=== PATIENT | male | born 1945 | race Caucasian/White ===

== ENCOUNTER 2017-04-08 22:01 | Observation (INO) ==
[2017-04-09] MEDS ORDERED: Naloxone 0.4 MG/ML INJ IVP PRN (00:39)
[2017-04-09] MEDS ORDERED: *HR* Morphine 2 MG/ML SYRINGE IVP PRN (00:39)
[2017-04-09] MEDS ORDERED: Acetaminophen 325 MG TABLET PO PRN (00:39)
--- NOTE | 2017-04-09 00:54 | Internal Med History&Physical ---
Date of Encounter: 04/09/17 Time of Encounter: 00:25 Assessment and Plan (1) Exertional dyspnea Current visit: Yes Status: Acute 1. Based upon history and exam, I am concerned about cardiac (anginal) etiology. 2. Will cycle troponins, EKG's, and obtain ECHO. 3. If above negative, patient should undergo cardiac stress testing. (2) Chest pain Current visit: Yes Status: Acute 1. Pain appears to be pleuritic and/or musculoskeletal based upon exam. 2. Patient denies any chest wall trauma. 3. Will rule out cardiac etiology and, if negative, then can pursue non- cardiac work-up and treat as needed. 4. CTA chest negative for PE. Qualifiers: Chest pain type: intercostal pain Qualified Code(s): R07.82 - Intercostal pain (3) DVT prophylaxis Current visit: Yes Status: Acute 1. Heparin SQ. Internal Medicine - H&P: HPI Chief complaint: chest pain; exertional SOB Admitted From: Hospital to Hospital Transfer Plans for Post Hospital Care: Home History of present illness: Mr. Armenta is a 71 year old male who presents in transfer from [facility] ER for concerns of chest pain and exertional dyspnea. Workup at [facility] was negative including a CT angiogram to rule out PE. Nonetheless, his history and his presenting symptoms were concerning and justified transfer for further cardiac workup and monitoring. I accepted the patient in transfer from [facility]. Upon my assessment of the patient, he is resting in bed comfortably. He does complain of pleuritic type chest pain of 2-3 days duration. He also complains of worsening exertional dyspnea to the point that he can barely walk without significant dyspnea. These symptoms started about 1 week ago and have progressively worsened. He denies any fever, cough, chills, or body aches. He denies any ill contacts. He does have a history of heart disease and a prior ND. He had a balloon angioplasty back in 1991, but he has not had any kind of stent in his coronary arteries. His last heart catheterization was about 10 years ago and he has not had a stress test since then. He denies any prolonged travel, sedentary lifestyle, or any family history of blood clots. Past Med Surg Social Fam HX - Past Medical History Attestation: Yes The following information was validated with the patient. Source: patient, old records reviewed, other ([facility] ER notes) Medical history: coronary artery disease, GERD, hyperlipidemia, hypertension, myocardial infarction, thyroid disease Psychiatric history: no psych history - Past Surgical History Surgical History: appendectomy, cholecystectomy, colectomy (partial) - Social History Smoking Status: Never smoker Smokeless Tobacco Status: No Alcohol use: none Drug use: none Current living situation: Home, With Family Activity Level: Independent ambulation - Family History Mother Living Status: Hx Family Cardiac Disorders: No Father Living Status: Hx Family Cardiac Disorders: No Hx Family Cancer: Yes Internal Medicine - H&P: Meds Cetirizine HCl [All Day Allergy] 10 mg PO DAILY 04/08/17 [History] Finasteride [Proscar] 5 mg PO DAILY 04/08/17 [History] HYDROcodone/Acet 10/325 mg [[place] 10-325 mg] 1 tab PO Q6HR PRN 04/08/17 [History ] Hydrochlorothiazide [Microzide] 12.5 mg PO DAILY 04/08/17 [History] Levofloxacin [Levaquin] 500 mg PO DAILY 04/08/17 [History] Levothyroxine [Synthroid] 25 mcg PO DAILY 04/08/17 [History] Omeprazole [PriLOSEC] 40 mg PO DAILY 04/08/17 [History] Ondansetron ODT [Zofran ODT] 4 mg SL Q6HR PRN 04/08/17 [History] Pregabalin [Lyrica] 150 mg PO TID 04/08/17 [History] amLODIPine [Norvasc] 5 mg PO DAILY 04/08/17 [History] lamoTRIgine [Lamictal] 100 mg PO BID 04/08/17 [History] 3 Allergy/AdvReac Type Severity Reaction Status Date / Time ciprofloxacin Allergy Hypotension Verified 08/27/16 14:53 - Constitutional Constitutional: no chills, no fever(s), no night sweats - EENT Eyes: no blurry vision, no change in vision Ears: no ear pain, no tinnitus Nose, mouth and throat: no nasal congestion, no sinus pressure, no sore throat - Cardiovascular Cardiovascular ROS IM: chest pain, dyspnea, dyspnea on exertion, lightheadedness , palpitations, no diaphoresis, no edema, no paroxysmal nocturnal dyspnea, no syncope - Respiratory Respiratory: dyspnea, dyspnea on exertion, pain on inspiration, no cough, no hemoptysis, no wheezing, no chest congestion, no excessive phlegm production, no pain with cough - Gastrointestinal Gastrointestinal: no abdominal pain, no diarrhea, no hematemesis, no hematochezia, no melena, no nausea, no vomiting - Genitourinary Genitourinary ROS male: no dysuria, no flank pain, no hematuria - Musculoskeletal Musculoskeletal ROS IM: back pain (chronic), no muscle weakness, no myalgias - Integumentary Integumentary IM: no rash, no jaundice - Neurological Neurological ROS: no focal weakness, no frequent falls, no headache(s) - Psychiatric Psychiatric: no anxiety, no depression - Endocrine Endocrine IM: no cold intolerance, no heat intolerance, no polydipsia, no polyuria - Hematologic/Lymphatic Hematologic/Lymphatic: no lymphadenopathy - Allergic/Immunologic Allergic/Immunologic: no wheezing, no GI upset with certain foods - Constitutional Vitals: Temp Pulse Resp BP Pulse Ox 98.1 F 77 18 132/79 96 04/09/17 00:36 04/09/17 00:36 04/09/17 00:36 04/09/17 00:36 04/09/17 00:36 General appearance: Present: cooperative, mild distress, A&O X 3, pleasant, answers questions appropriately - Head Head exam: Present: atraumatic, normal inspection - Eye Eye exam: Present: EOMI, normal appearance, PERRL. Absent: scleral icterus Pupils: Present: normal accommodation - ENT ENT exam: Present: mucous membranes dry, normal exam - Neck Neck exam general surgery: Present: full ROM, supple. Absent: lymphadenopathy, tenderness, thyromegaly - Expanded Neck Exam Neck exam: Absent: carotid bruit - Respiratory Respiratory exam: Present: chest wall tenderness (left lower ribs), CTAB. Absent: accessory muscle use, rales, respiratory distress, rhonchi, wheezes - Cardiovascular Cardiovascular exam: Present: RRR, +S1, +S2. Absent: diastolic murmur, JVD, systolic murmur - GI/Abdominal GI/Abdominal exam: Present: soft. Absent: hepatomegaly, mass, splenomegaly, tenderness - Extremities Exam Extremities exam: Present: full ROM, warm. Absent: calf tenderness, joint swelling - Back Exam Back exam: Absent: CVA tenderness (L), CVA tenderness (R) - Neurological Exam Neurological exam: Present: alert, CN II-XII intact, oriented X3, no focal deficits - Psychiatric Psychiatric exam: Present: normal affect, normal mood - Skin Skin exam: Present: dry, warm. Absent: rash Internal Med - H&P Results - EKG Data -: EKG Interpreted by Myself - EKG Data Prior EKG available for review: no EKG comments: 04/09/17 01:01 Sinus rhythm; LAD; borderline LVH; no acute changes appreciated - Diagnostic Studies CT scan - chest Additional comments: CT report reviewed -- No PE Chest x-ray Status: image reviewed by me (negative)
[2017-04-09] MEDS: Famotidine 20 MG TABLET PO SCH ×2 (01:11→09:34)
[2017-04-09] MEDS: *HR* HYDROcodone/Acet 10/325 mg TABLET PO PRN ×4 (01:11→20:18)
[2017-04-09 01:50] LABS: Basophils # 0.1 K/mcL (0.0-0.2); Eosinophils # 0.1 K/mcL (0.0-0.6); Eosinophils % 2.7 %; Hematocrit 44.4 % (37.5-50.1); Hemoglobin 14.7 g/dL (12.9-16.9); Immature Granulocytes % 0.4 % (0-4); Lymphocytes # 1.6 K/mcL (0.6-4.6); Lymphocytes % 30.7 %; Mean Corpuscular HGB Conc 33.1 g/dL (31.6-35.5); Mean Corpuscular Hemoglobin 29.1 pg (28.0-33.3); Mean Corpuscular Volume 87.7 fL (83.0-100.0); Mean Platelet Volume 9.7 fL (9.4-12.4); Monocytes # 0.6 K/mcL (0.0-1.3); Monocytes % 11.2 %; Neutrophils # 2.8 K/mcL (1.6-8.9); Platelet Count 206 K/mcL (140-400); Red Blood Count 5.06 M/mcL (4.19-5.50); Red Cell Distribution Width 12.2 % (11.5-14.5)
[2017-04-09 01:53] LABS: INR 1.1; Prothrombin Time 12.2 Seconds (9.4-12.1)
[2017-04-09] MEDS: *HR* LORazepam 0.5 MG TABLET PO PRN ×2 (01:53→21:10)
[2017-04-09 01:55] LABS: Activated Partial Thrombo Time 31.4 Seconds (26.0-36.0)
[2017-04-09 02:07] LABS: Alanine Aminotransferase 14 Units/L (0-55); Albumin 4.1 g/dL (3.5-5.0); Albumin/Globulin Ratio 1.2 (1.1-2.2); Alkaline Phosphatase 88 Units/L (38-126); Aspartate Amino Transferase 21 Units/L (5-34); BUN/Creatinine Ratio 12 (6-26); Bilirubin,Total 0.7 mg/dL (0.2-1.2); Blood Urea Nitrogen 15 mg/dL (8-26); Calcium 9.9 mg/dL (8.6-10.8); Carbon Dioxide 27 mEq/L (19-29); Chloride 102 mEq/L (98-109); Chol/HDL Ratio 3.3 (0-4.9); Cholesterol 151 mg/dL (< 200); Globulin 3.3 g/dL (2.4-3.5); Glucose 149 mg/dL (70-99); HDL Cholesterol 46 mg/dL (40-59); LDL Cholesterol,Calculated 92 mg/dL (0-99); Magnesium 2.3 mg/dL (1.6-2.6); Osmolality,Calculated 292 (280-300); Potassium 3.4 mEq/L (3.5-4.5); Sodium 139 mEq/L (136-145); Total Protein 7.4 g/dL (6.0-8.3); Triglycerides 67 mg/dL (< 150); eGFR For African Americans > 60 (> 60); eGFR For Non-African Americans 57 (> 60)
[2017-04-09] MEDS: *HR* Heparin 5,000 UNIT/ML VIAL SQ SCH ×2 (05:04→18:05)
[2017-04-09] MEDS: lamoTRIgine 100 MG TABLET PO SCH ×2 (12:51→20:18)
--- NOTE | 2017-04-09 17:08 | Internal Med Progress Note ---
Date of Encounter: 04/09/17 Time of Encounter: 15:35 - Assessment and plan (1) Chest pain Current Visit: Yes Status: Acute Assessment and plan: Patient denies chest pain currently. He reports syncopal episodes intermittently, most recently at primary care physician's office. Echocardiogram today shows LVEF of 60% with mild LV DD normal right ventricular structure and function, no significant valvular dysfunction. Stress test has been ordered for morning. Continue telemetry O2 as needed to maintain sats greater than 92% Stress test in the morning Consider cardiology consult based on stress results. Qualifiers: Chest pain type: intercostal pain Qualified Code(s): R07.82 - Intercostal pain (2) Exertional dyspnea Current Visit: Yes Status: Acute Assessment and plan: Patient reports increasing dyspnea for the last 2 nights, he states he is not to sleep in the chair sitting up. He also reports worsening exertional dyspnea and he barely walk without becoming short of breath. He states that he has been short of breath since November with worsening here in the last week. He has a history of prior RI and angioplasty 15 years ago, he denies any stents. Echocardiogram result as above. Chest CT without PE no acute airspace consolidation, multiple scattered pulmonary nodules, the largest approximate 5 mm. There is no follow-up required. Chest x-ray showed low lung volumes and no infiltrate. O2 as needed to maintain saturations greater than 92% Continue telemetry Stress test in the morning Consider cardiology consult (3) Trigeminal neuralgia of left side of face Current Visit: Yes Status: Acute Assessment and plan: Per patient history. He takes Lamictal. (4) DVT prophylaxis Current Visit: Yes Status: Acute Assessment and plan: Heparin subcutaneous. - Time Spent With Patient less than 15 minutes - Subjective Interval history: Patient was seen and assessed at 1535. He reports that he has had shortness of breath since November, it became worse when he was admitted at [facility]. He reports that his first episode of syncope was at home on December 17. He was sent to [facility] diagnosed with trigeminal neuralgia. Patient reports left chest pain with intermittent midsternal sharp chest pain without radiation, he reports some associated nausea, denies vomiting or diaphoresis.. He states he also had a syncopal episode at his primary care doctor's office prior to arrival. Patient reports positive headache now, states that since his medication has been late he has a headache. Nurse was informed to give patient his medication - Constitutional Vitals: Temp Pulse Resp BP Pulse Ox 98.2 F 80 14 113/69 96 04/09/17 15:40 04/09/17 15:40 04/09/17 15:40 04/09/17 15:40 04/09/17 15:40 General appearance: Present: cooperative, mild distress, A&O X 3, pleasant, no acute distress, answers questions appropriately - Head Head exam: Present: atraumatic, normal inspection, normocephalic - Eye Eye exam: Present: normal appearance, PERRL, conjuntiva pink, sclera anicteric - Neck Neck exam general surgery: Present: normal inspection, supple, trachea midline. Absent: lymphadenopathy - Respiratory Respiratory exam: Present: CTAB. Absent: accessory muscle use, chest wall tenderness, rales, rhonchi, wheezes - Cardiovascular Cardiovascular exam: Present: RRR, +S1, +S2. Absent: diastolic murmur, gallop, rubs, systolic murmur - GI/Abdominal GI/Abdominal exam: Present: normal bowel sounds, soft, no peritoneal signs. Absent: distended, hepatomegaly, tenderness - Extremities Exam Extremities exam: Present: normal inspection, warm, radial pulses palpable and symmetrical. Absent: calf tenderness, cyanotic, pedal edema - Neurological Exam Neurological exam: Present: alert, oriented X3. Absent: facial droop, speech deficit - Skin Skin exam: Present: dry, intact, normal color, warm. Absent: rash Internal Medicine: Result - Labs CBC & Chem 7: 04/09/17 01:10 04/09/17 01:10 Labs: Short CBC 04/09/17 Range/Units 01:10 WBC 5.2 (4.3-11.1) K/mcL Hgb 14.7 (12.9-16.9) g/dL Hct 44.4 (37.5-50.1) % Plt Count 206 (140-400) K/mcL Neutrophils # 2.8 (1.6-8.9) K/mcL BMP 04/09/17 01:10 Sodium 139 Potassium 3.4 L Chloride 102 Carbon Dioxide 27 BUN 15 Creatinine 1.25 Glucose 149 H Calcium 9.9 Cardiac Enzymes 04/09/17 04/09/17 04/09/17 Range/Units 01:10 06:50 12:18 Troponin I 0.00 0.01 0.00 (0-0.03) ng/mL Liver Function 04/09/17 Range/Units 01:10 Total Bilirubin 0.7 (0.2-1.2) mg/dL AST 21 (5-34) Units/L ALT 14 (0-55) Units/L Alkaline Phosphatase 88 (38-126) Units/L Albumin 4.1 (3.5-5.0) g/dL - ABG Interpretation ABG results: PT/INR, D-dimer PT 12.2 Seconds (9.4-12.1) H 04/09/17 01:10 Consult Discharge Plan - Plan Referrals: Miguel Mera MD [Primary Care Provider] -
[2017-04-09] MEDS: amLODIPine 5 MG TABLET PO SCH (18:04)
[2017-04-09] MEDS: levoFLOXacin 500 MG TABLET PO SCH (18:05)
[2017-04-09] MEDS: Loratadine 10 MG TABLET PO SCH (18:05)
[2017-04-09] MEDS: hydroCHLOROthiazide 25 MG TABLET PO SCH (18:05)
[2017-04-09] MEDS: Pregabalin 75 MG CAPSULE PO SCH (20:19)
[2017-04-09] MEDS ORDERED: lamoTRIgine 100 MG TABLET PO SCH (21:00)
[2017-04-09] MEDS: Ondansetron 4 MG/2 ML VIAL IVP PRN (22:44)
[2017-04-10] MEDS: *HR* Heparin 5,000 UNIT/ML VIAL SQ SCH ×2 (05:33→16:51)
[2017-04-10] MEDS: Levothyroxine 25 MCG TABLET PO SCH (05:34)
[2017-04-10] MEDS ORDERED: Regadenoson 0.4 MG/5 ML SYRINGE IVP ONE (08:44)
[2017-04-10] MEDS: hydroCHLOROthiazide 25 MG TABLET PO SCH (10:41)
[2017-04-10] MEDS: Loratadine 10 MG TABLET PO SCH (10:41)
[2017-04-10] MEDS: *HR* LORazepam 0.5 MG TABLET PO PRN ×2 (10:41→21:54)
[2017-04-10] MEDS: Finasteride 5 MG TABLET PO SCH (10:41)
[2017-04-10] MEDS: lamoTRIgine 100 MG TABLET PO SCH ×2 (10:41→21:55)
[2017-04-10] MEDS: Pregabalin 75 MG CAPSULE PO SCH ×3 (10:42→21:55)
[2017-04-10] MEDS: Famotidine 20 MG TABLET PO SCH (10:42)
[2017-04-10] MEDS: amLODIPine 5 MG TABLET PO SCH (10:42)
--- NOTE | 2017-04-10 16:36 | Internal Med Progress Note ---
Date of Encounter: 04/10/17 Time of Encounter: 10:35 - Assessment and plan (1) Chest pain Current Visit: Yes Status: Acute Assessment and plan: Stress test today showed gated EF 73% with a small sized, moderate intensity, reversible apical lateral defect suggestive of ischemia. Cardiology consulted, pt will be NPO after midnight for possible cath tomorrow or Tuesday. Continue telemetry Pain control Monitor labs NPO after midnight. Qualifiers: Chest pain type: intercostal pain Qualified Code(s): R07.82 - Intercostal pain (2) Exertional dyspnea Current Visit: Yes Status: Acute Assessment and plan: Patient reports increasing dyspnea for the last 3 nights, he states he has to sleep in the chair sitting up. He also reports worsening exertional dyspnea and he barely walk without becoming short of breath. He states that he has been short of breath since November with worsening here in the last week. He has a history of prior ID and angioplasty 15 years ago, he denies any stents. Echocardiogram result as above. Chest CT without PE no acute airspace consolidation, multiple scattered pulmonary nodules, the largest approximate 5 mm. There is no follow-up required. Chest x-ray showed low lung volumes and no infiltrate. Pt reports episode last night where he felt like "I couldn't get my breath." He states that he was shaky and nauseated and was given Zofran. He had Ativan prior to bed, onset of episode at 0130. Pt was amenable to trying Ativan today. O2 as needed to maintain saturations greater than 92% Continue telemetry Stress test in the morning Consider cardiology consult (3) Trigeminal neuralgia of left side of face Current Visit: Yes Status: Acute Assessment and plan: Per patient history. He takes Lamictal. (4) DVT prophylaxis Current Visit: Yes Status: Acute Assessment and plan: Heparin subcutaneous. - Subjective Interval history: Patient was seen and assessed at 1035. Pt still reports SOB. He states that he had an episode during the night where he was SOB and "I couldn't catch my breath." Onset at 0130 and he reports nausea and shaking. He was given Zofran and states that he felt better. He was agreeable to Ativan today. - Constitutional Vitals: Temp Pulse Resp BP Pulse Ox 98.3 F 76 14 114/72 96 04/10/17 15:43 04/10/17 15:43 04/10/17 15:43 04/10/17 15:43 04/10/17 15:43 General appearance: Present: cooperative, mild distress, A&O X 3, pleasant, no acute distress, answers questions appropriately - Head Head exam: Present: atraumatic, normal inspection, normocephalic - Eye Eye exam: Present: normal appearance, conjuntiva pink, sclera anicteric - Neck Neck exam general surgery: Present: normal inspection, supple, trachea midline. Absent: lymphadenopathy - Respiratory Respiratory exam: Present: CTAB. Absent: accessory muscle use, chest wall tenderness, decreased breath sounds, rales, rhonchi, wheezes - Cardiovascular Cardiovascular exam: Present: RRR, +S1, +S2. Absent: diastolic murmur, gallop, rubs, systolic murmur - GI/Abdominal GI/Abdominal exam: Present: normal bowel sounds, soft. Absent: distended, hernia, tenderness - Extremities Exam Extremities exam: Present: normal inspection, warm, radial pulses palpable and symmetrical. Absent: calf tenderness, cyanotic, pedal edema, tenderness - Neurological Exam Neurological exam: Present: alert, oriented X3. Absent: facial droop, speech deficit - Skin Skin exam: Present: dry, intact, normal color, warm. Absent: rash Internal Medicine: Result - Labs CBC & Chem 7: 04/09/17 01:10 04/09/17 01:10 - ABG Interpretation ABG results: PT/INR, D-dimer PT 12.2 Seconds (9.4-12.1) H 04/09/17 01:10 Consult Discharge Plan - Plan Referrals: Miguel Mera MD [Primary Care Provider] -
[2017-04-10] MEDS: levoFLOXacin 500 MG TABLET PO SCH (16:51)
[2017-04-10] MEDS: *HR* HYDROcodone/Acet 10/325 mg TABLET PO PRN (20:04)
[2017-04-10] MEDS: Ondansetron 4 MG/2 ML VIAL IVP PRN (21:59)
[2017-04-11 04:34] LABS: Basophils # 0.1 K/mcL (0.0-0.2); Eosinophils # 0.2 K/mcL (0.0-0.6); Eosinophils % 4.3 %; Hematocrit 44.4 % (37.5-50.1); Hemoglobin 14.5 g/dL (12.9-16.9); Immature Granulocytes % 0.4 % (0-4); Lymphocytes % 40.4 %; Mean Corpuscular HGB Conc 32.7 g/dL (31.6-35.5); Mean Corpuscular Hemoglobin 29.4 pg (28.0-33.3); Mean Corpuscular Volume 89.9 fL (83.0-100.0); Mean Platelet Volume 9.2 fL (9.4-12.4); Monocytes # 0.5 K/mcL (0.0-1.3); Monocytes % 10.9 %; Neutrophils # 2.1 K/mcL (1.6-8.9); Platelet Count 202 K/mcL (140-400); Red Blood Count 4.94 M/mcL (4.19-5.50); Red Cell Distribution Width 12.2 % (11.5-14.5)
[2017-04-11 04:51] LABS: BUN/Creatinine Ratio 15 (6-26); Blood Urea Nitrogen 20 mg/dL (8-26); Calcium 9.6 mg/dL (8.6-10.8); Carbon Dioxide 31 mEq/L (19-29); Chloride 101 mEq/L (98-109); Glucose 99 mg/dL (70-99); Osmolality,Calculated 291 (280-300); Potassium 4.2 mEq/L (3.5-4.5); Sodium 139 mEq/L (136-145); eGFR For African Americans > 60 (> 60); eGFR For Non-African Americans 53 (> 60)
[2017-04-11] MEDS: *HR* Heparin 5,000 UNIT/ML VIAL SQ SCH ×2 (06:38→17:09)
[2017-04-11] MEDS: Levothyroxine 25 MCG TABLET PO SCH (06:39)
[2017-04-11] MEDS: Finasteride 5 MG TABLET PO SCH (09:00)
[2017-04-11] MEDS: hydroCHLOROthiazide 25 MG TABLET PO SCH (09:00)
[2017-04-11] MEDS: Loratadine 10 MG TABLET PO SCH (09:01)
[2017-04-11] MEDS: Pregabalin 75 MG CAPSULE PO SCH ×3 (09:01→21:11)
[2017-04-11] MEDS: amLODIPine 5 MG TABLET PO SCH (09:01)
[2017-04-11] MEDS: lamoTRIgine 100 MG TABLET PO SCH ×2 (09:01→21:11)
[2017-04-11] MEDS: Famotidine 20 MG TABLET PO SCH (09:01)
--- NOTE | 2017-04-11 09:03 | Cardiology Consult Note ---
Date of Encounter: 04/11/17 Time of Encounter: 09:05 Assessment and Plan (1) Chest pain Current Visit: Yes Status: Acute Per Cardiology: Chest pain atypical, reproducible today with deep inspiration and palpation. Troponins negative 3. Echo showed EF preserved at 60%, no significant valvular dysfunction, mild diastolic dysfunction, NSWMA. Qualifiers: Chest pain type: intercostal pain Qualified Code(s): R07.82 - Intercostal pain (2) CAD (coronary artery disease) Current Visit: Yes Status: Chronic Per Cardiology: History of CAD with balloon angioplasty in 1991 and last heart catheterization 6 years ago at outside facility with no intervention warranted. On statin, will add asa. Qualifiers: Coronary Disease-Associated Artery/Lesion type: [place] artery [place] vs. transplanted heart: [place] heart Associated angina: angina presence unspecified Qualified Code(s): I25.10 - Atherosclerotic heart disease of [place] coronary artery without angina pectoris (3) Abnormal nuclear stress test Current Visit: Yes Status: Acute Per Cardiology: Non-exercise nuclear stress test showed small, moderate intensity, suggestive for reversible apical lateral ischemia. I had a lengthy discussion with patient regarding potential further evaluation in terms of catheterization and patient desires to proceed. Plan for catheterization tomorrow. Further recommendations after [facility]. Currently chest pain-free other than symptoms elicited with deep inspiration and palpation today. (4) DOLLY (acute kidney injury) Current Visit: Yes Status: Acute Per Cardiology: Appears to have some mild DOLLY, kidney function normal upon baseline. We'll discontinue HCTZ. Systolic blood pressure stable, consider increasing Norvasc if needed. Will give IV fluids for hydration. Records indicate mild renal insufficiency hx. Discussion w patient/family: The assessment and plan as outlined above was discussed with the patient who expressed understanding and agreement. All questions were answered. Thank you for involving us in the care of your patient. Please call with any questions. History of Present Illness Consult date: 04/11/17 Requesting physician: Miguelina Perez Consult reason: + ST Chief complaint: ZALDIVAR, Fatigue History of present illness: Mr. Armenta is a 71 year old male with a relevant past medical history of hypertension, CAD, hyperlipidemia, Asthma/COPD, mild renal insufficiency. Cardiology consult for abnormal stress test with worsening dyspnea on exertion and fatigue. Patient reports history of balloon angioplasty in 1991 and last heart catheterization about 6 years ago at outside facility ([facility])-- denies any stenting at that time. Patient reports progressive worsening shortness of breath at rest and with exertion over the past few months. Also indicates increasing overall fatigue over the past few months. He does admit to some mild chest discomfort when he is experiencing shortness of breath and appears to be worse with deep inspirations. He reports episode of syncope about 6 months ago at time of diagnosis of trigeminal neuralgia evaluated in [place]. She denies any further recurrent sick.. Denies any palpitations. Denies any recent infectious process. Denies any active bleeding or blood loss. Denies any smoking history. Past Med Surg Social Fam HX - Past Medical History Attestation: Yes The following information was validated with the patient. Source: patient, old records reviewed Medical history: coronary artery disease, GERD, hyperlipidemia, hypertension, myocardial infarction, thyroid disease Psychiatric history: anxiety, depression - Past Surgical History Surgical History: appendectomy, cholecystectomy, colectomy - Social History Smoking Status: Never smoker Smokeless Tobacco Status: No Alcohol use: none Drug use: none - Family History Mother Living Status: Hx Family Cardiac Disorders: No Father Living Status: Hx Family Cardiac Disorders: No Hx Family Cancer: Yes Medications and Allergies Cetirizine HCl [All Day Allergy] 10 mg PO DAILY 04/08/17 [History] Finasteride [Proscar] 5 mg PO DAILY 04/08/17 [History] HYDROcodone/Acet 10/325 mg [[place] 10-325 mg] 1 tab PO Q6HR PRN 04/08/17 [History ] Hydrochlorothiazide [Microzide] 12.5 mg PO DAILY 04/08/17 [History] Levofloxacin [Levaquin] 500 mg PO DAILY 04/08/17 [History] Levothyroxine [Synthroid] 25 mcg PO DAILY 04/08/17 [History] Omeprazole [PriLOSEC] 40 mg PO DAILY 04/08/17 [History] Pregabalin [Lyrica] 150 mg PO TID 04/08/17 [History] amLODIPine [Norvasc] 5 mg PO DAILY 04/08/17 [History] lamoTRIgine [Lamictal] 100 mg PO BID 04/08/17 [History] Atorvastatin Calcium [Lipitor] 20 mg PO HS 04/09/17 [History] 3 Allergy/AdvReac Type Severity Reaction Status Date / Time ciprofloxacin Allergy Hypotension Verified 08/27/16 14:53 All Systems Review: A 10-system review of systems was performed and is negative for pertinent findings except as documented above in the HPI. - Constitutional Constitutional: fatigue - Cardiovascular Cardiovascular: as per HPI, chest pain at rest, dyspnea at rest, dyspnea on exertion Physical Examination Vital Signs, Last 4 Hours Temp Pulse Resp BP Pulse Ox 04/11/17 07:11 97.7 F 65 15 115/61 97 General: Conversant, No Apparent Distress HEENT: Atraumatic, Normocephaly, Mucus Membranes Moist Neck: No JVD, Normal carotid pulses Cardiac: Reg Rate and Rhythm, Normal S1 and S2, No Murmur Lungs: Normal Breath Sounds, No Wheeze, Rales, Rhonchi Neuro: Alert and responsive, No focal deficits noted Abdomen: Soft, Non-Tender Skin: No rashes noted on visualized skin Musculoskeletal: No Chest Wall Tenderness Extremities: No Clubbing, No Cyanosis, No Edema, Normal Pulses Results 04/11/17 04:07 04/11/17 04:07 Lab Results Laboratory Tests 04/09/17 04/09/17 04/09/17 01:10 01:10 01:10 INR 1.1 Creatinine Est GFR (Non-Af Amer) Magnesium 2.3 AST 21 ALT 14 Troponin I 0.00 LDL Cholesterol, Calc 92 04/09/17 04/09/17 04/11/17 06:50 12:18 04:07 INR Creatinine 1.34 H Est GFR (Non-Af Amer) 53 L Magnesium AST ALT Troponin I 0.01 0.00 LDL Cholesterol, Calc Active Medications Acetaminophen (Tylenol) 650 mg PO Q6HR PRN PRN Reason: Mild Pain (1-3) Stop: 10/09/17 00:40 Hydrocodone Bitart/Acetaminophen ([place] 10-325 Mg) 1 each PO Q6HR PRN PRN Reason: mild to moderate pain Stop: 10/09/17 00:43 Last Admin: 04/10/17 20:04 Dose: 1 each Amlodipine Besylate (Norvasc) 5 mg PO DAILY [facility] PRN Reason: Protocol Stop: 10/09/17 17:01 Last Admin: 04/11/17 09:01 Dose: 5 mg Atorvastatin Calcium (Lipitor) 20 mg PO HS [facility] Stop: 10/09/17 21:01 Last Admin: 04/10/17 21:54 Dose: 20 mg Docusate Sodium (Colace) 100 mg PO BID PRN PRN Reason: Constipation Stop: 10/09/17 00:40 Last Admin: 04/10/17 14:37 Dose: 100 mg Famotidine (Pepcid) 20 mg PO DAILY [facility] Stop: 10/10/17 09:01 Last Admin: 04/11/17 09:01 Dose: 20 mg Finasteride (Proscar) 5 mg PO DAILY [facility] PRN Reason: Protocol Stop: 10/10/17 09:01 Last Admin: 04/11/17 09:00 Dose: 5 mg Heparin Sodium (Porcine) (Heparin) 5,000 unit SQ Q12HCO [facility] Stop: 10/09/17 06:01 Last Admin: 04/11/17 06:38 Dose: Not Given Hydrochlorothiazide (Hydrochlorothiazide) 12.5 mg PO DAILY [facility] Stop: 10/09/17 17:01 Last Admin: 04/11/17 09:00 Dose: 12.5 mg Lamotrigine (Lamictal) 100 mg PO BID [facility] Stop: 10/09/17 12:46 Last Admin: 04/11/17 09:01 Dose: 100 mg Levofloxacin (Levaquin) 500 mg PO Q24H [facility] PRN Reason: Protocol Stop: 10/09/17 17:01 Last Admin: 04/10/17 16:51 Dose: 500 mg Levothyroxine Sodium (Synthroid) 25 mcg PO 0630 [facility] Stop: 10/10/17 06:31 Last Admin: 04/11/17 06:39 Dose: 25 mcg Loratadine (Claritin) 10 mg PO DAILY [facility] Stop: 10/09/17 17:01 Last Admin: 04/11/17 09:01 Dose: 10 mg Lorazepam (Ativan) 0.5 mg PO Q12HR PRN PRN Reason: Anxiety Stop: 10/09/17 01:40 Last Admin: 04/10/17 21:54 Dose: 0.5 mg Morphine Sulfate (Morphine Sulfate) 2 mg IVP Q4HR PRN PRN Reason: Chest Pain Stop: 10/09/17 00:40 Naloxone HCl (Narcan) 0.4 mg IVP Q2MIN PRN PRN Reason: Opioid Reversal Stop: 10/09/17 00:40 Omeprazole (Prilosec) 40 mg PO 0730 [facility] Stop: 10/10/17 07:31 Last Admin: 04/11/17 06:39 Dose: 40 mg Ondansetron HCl (Zofran) 4 mg IVP Q8HR PRN PRN Reason: Nausea And Vomiting Stop: 10/09/17 00:40 Last Admin: 04/10/17 21:59 Dose: 4 mg Pregabalin (Lyrica) 150 mg PO TID [facility] Stop: 10/09/17 21:01 Last Admin: 04/11/17 09:01 Dose: 150 mg - Imaging and Cardiology Stress Test: report reviewed Echo: report reviewed - EKG Interpretation EKG results cardiology: other (24-hour telemetry reviewed with average heart rate 73, sinus rhythm, currently sinus rhythm in the 70s, no events noted) Consult Discharge Plan - Plan Referrals: Miguel Mera MD [Primary Care Provider] -
[2017-04-11] MEDS: 0.9 % Sodium Chloride 500 ML IVC SCH (11:59)
--- NOTE | 2017-04-11 12:10 | Internal Med Progress Note ---
Date of Encounter: 04/11/17 Time of Encounter: 10:40 - Assessment and plan (1) Chest pain Current Visit: Yes Status: Acute Assessment and plan: Stress test showed gated EF 73% with a small sized, moderate intensity, reversible apical lateral defect suggestive of ischemia. Cardiology consulted, pt will be NPO after midnight for cath tomorrow. Echo LVEF 60% normal LVDD, no significant valvular dysfunction. Pt denies chest pain, but reports baseline SOB and worsening ZALDIVAR. Continue telemetry Pain control Monitor labs NPO after midnight. Qualifiers: Chest pain type: intercostal pain Qualified Code(s): R07.82 - Intercostal pain (2) Exertional dyspnea Current Visit: Yes Status: Acute Assessment and plan: Pt still reports ZALDIVAR and baseline SOB at rest. O2 as needed to maintain saturations greater than 92% Continue telemetry Stress test in the morning Consider cardiology consult (3) Trigeminal neuralgia of left side of face Current Visit: Yes Status: Acute Assessment and plan: Per patient history. He takes Lamictal. Continue home medications. (4) DVT prophylaxis Current Visit: Yes Status: Acute Assessment and plan: Heparin subcutaneous, pt is ambulatory. - Time Spent With Patient less than 15 minutes - Subjective Interval history: Patient was seen and assessed at 1040. Pt still reports SOB. He was up walking in the hallway and reported increased SOB with exertion. He denies chest pain. I was in the room when cardiology spoke with pt, they decided on [facility] tomorrow. - Constitutional Vitals: Temp Pulse Resp BP Pulse Ox 97.8 F 86 14 133/84 99 04/11/17 11:23 04/11/17 11:23 04/11/17 11:23 04/11/17 11:23 04/11/17 11:23 General appearance: Present: cooperative, mild distress, A&O X 3, pleasant, no acute distress, answers questions appropriately - Head Head exam: Present: atraumatic, normal inspection, normocephalic - Eye Eye exam: Present: normal appearance, conjuntiva pink, sclera anicteric - ENT ENT exam: Present: mucous membranes moist, normal exam, normal external ear exam - Neck Neck exam general surgery: Present: normal inspection, supple, trachea midline. Absent: lymphadenopathy, tenderness - Respiratory Respiratory exam: Present: CTAB. Absent: accessory muscle use, chest wall tenderness, rales, rhonchi, wheezes - Cardiovascular Cardiovascular exam: Present: RRR, +S1, +S2. Absent: diastolic murmur, gallop, rubs, systolic murmur - GI/Abdominal GI/Abdominal exam: Present: normal bowel sounds, soft. Absent: distended, hepatomegaly, tenderness - Extremities Exam Extremities exam: Present: normal inspection, warm, radial pulses palpable and symmetrical. Absent: calf tenderness, cyanotic, pedal edema - Neurological Exam Neurological exam: Present: alert, normal gait, oriented X3, no focal deficits, strengths equal and symetr throughout. Absent: motor sensory deficit, facial droop, speech deficit - Skin Skin exam: Present: dry, intact, normal color, warm. Absent: rash Internal Medicine: Result - Labs CBC & Chem 7: 04/11/17 04:07 04/11/17 04:07 Labs: Short CBC 04/11/17 Range/Units 04:07 WBC 4.9 (4.3-11.1) K/mcL Hgb 14.5 (12.9-16.9) g/dL Hct 44.4 (37.5-50.1) % Plt Count 202 (140-400) K/mcL Neutrophils # 2.1 (1.6-8.9) K/mcL BMP 04/11/17 04:07 Sodium 139 Potassium 4.2 Chloride 101 Carbon Dioxide 31 H BUN 20 Creatinine 1.34 H Glucose 99 Calcium 9.6 - ABG Interpretation ABG results: PT/INR, D-dimer PT 12.2 Seconds (9.4-12.1) H 04/09/17 01:10 Consult Discharge Plan - Plan Referrals: Miguel Mera MD [Primary Care Provider] -
[2017-04-11] MEDS: Aspirin 81 MG TAB.CHEW PO SCH (14:08)
[2017-04-11] MEDS: levoFLOXacin 500 MG TABLET PO SCH (17:09)
[2017-04-11] MEDS: *HR* LORazepam 0.5 MG TABLET PO PRN (21:20)
[2017-04-12] MEDS: 0.9 % Sodium Chloride 500 ML IVC SCH ×2 (03:00→12:13)
[2017-04-12] MEDS: Levothyroxine 25 MCG TABLET PO SCH (06:03)
[2017-04-12] MEDS: *HR* Heparin 5,000 UNIT/ML VIAL SQ SCH (06:03)
[2017-04-12 06:41] LABS: BUN/Creatinine Ratio 17 (6-26); Blood Urea Nitrogen 19 mg/dL (8-26); Calcium 9.5 mg/dL (8.6-10.8); Carbon Dioxide 30 mEq/L (19-29); Chloride 102 mEq/L (98-109); Glucose 95 mg/dL (70-99); Osmolality,Calculated 292 (280-300); Potassium 4.1 mEq/L (3.5-4.5); Sodium 140 mEq/L (136-145); eGFR For African Americans > 60 (> 60); eGFR For Non-African Americans > 60 (> 60)
[2017-04-12] MEDS: Finasteride 5 MG TABLET PO SCH (08:00)
[2017-04-12] MEDS: Loratadine 10 MG TABLET PO SCH (08:00)
[2017-04-12] MEDS: Aspirin 81 MG TAB.CHEW PO SCH (08:00)
[2017-04-12] MEDS: Pregabalin 75 MG CAPSULE PO SCH ×2 (08:00→14:14)
[2017-04-12] MEDS: amLODIPine 5 MG TABLET PO SCH (08:00)
[2017-04-12] MEDS: Famotidine 20 MG TABLET PO SCH (08:00)
[2017-04-12] MEDS: lamoTRIgine 100 MG TABLET PO SCH (08:01)
--- NOTE | 2017-04-12 08:11 | Nuclear Medicine Stress Report ---
Regadenoson Nuclear Stress Name: Robinson Armenta Date of Study: 04/10/2017 Date: 1945 Ht: 69.0 in Medical Record#: [id number] Age: 71 Wt: 180.0 lb Gender: Male Order #: [id number] Location: [facility] Room: [facility] Supervising Provider: Mir Ribera CNP Reading Physician: Juan J Garcia DO, FACC, FASNC Ordering Physician: Miguelina Perez CNP Primary Care Physician: Miguel Mera MD Stress Technologist: Zuleyma Meléndez, TRIM DIE MAKER, CCT, CPFT Dinkey Motor Operator: Tierra Townsend Indications: Chest Pain, Shortness of breath Impression: Pharmacologic stress ECG is non-diagnostic for ischemia due to submaximal HR. Gated EF = 73%. Small sized, moderate intensity, reversible apical lateral defect suggestive of ischemia. 3B nursing unit notified of results. History: Hypertension Hypercholesteremia Stress Test Summary: Stress Test Type: Pharmacologic Regadenoson 0.4mg/5ml given IV Baseline Information: Initial Heart Rate: 87 Blood Pressure: 114/70 Stress Information: Stress Time: 4 min sec Test Terminated Due to (primary): As per protocol Maximum Blood Pressure: 114/58 Maximum Heart Rate: 108 Percent Maximum Heart Rate Achieved: 72 Double Product: [id number] METS Reached: 1 Symptoms: Shortness of breath Nuclear Summary: SPECT myocardial perfusion imaging using Tc99m Sestamibi given intravenously was performed at rest and following cardiac stress testing. The resting images were obtained following initial dose of 10.9 mCi. Following stress an additional dose of 35.7 mCi was given at peak exercise or 30 seconds post regadenoson infusion. Medication Given: Time Medication Dose Units Route Findings: Stress Note * Resting ECG demonstrated normal sinus rhythm. * No baseline arrhythmias were noted. * No arrhythmias were noted during stress. * Patient had no chest pain during stress. * Pharmacologic stress ECG is non-diagnostic for ischemia due to submaximal HR. * Normal hemodynamic responses to pharmacologic stress. Study Quality * Study quality is average. Gated EF % * Gated EF = 73%. Left Ventricle * The left ventricle demonstrates transient dilatation. LVEDV = 89 mL. NORMALS * Normal wall motion. * Normal Segmental Perfusion in rest. Apical Perfusion Stress * The apical lateral segment shows a moderate reduction in perfusion. TID * No evidence of transient ischemic dilatation. TID ratio = 1.24. Lung Uptake * There is no evidence of increase lung uptake. Updated by Juan J Garcia DO, JONNY, GOLD, JESSIE on 04/10/2017 11:40:15 AM electronically signed on 04/10/2017 11:43:15 AM with status of Final
--- NOTE | 2017-04-12 08:15 | Event Note ---
Date of Encounter: 04/12/17 Time of Encounter: 08:20 - Cardiology Event Note Laboratory Tests 04/12/17 05:58 Creatinine 1.12 Est GFR (Non-Af Amer) > 60 Reports mild sob at rest last night. Reports some mild lower back pain. Agreeable for [facility] this am. All questions answered. kidney fxn better with dc of HCTZ and IVF.
--- NOTE | 2017-04-12 08:28 | Carotid Imaging Report ---
Carotid Duplex Patient Name:Robinson Armenta Order Number:[id number] Procedure Date:04/10/2017 Date:1945ge:71 yrs Gender:Male Lt BP:114 / 72 mmHg Location:[facility] Room #: [id number] Bag Maker:Bailey Davenport, RVT, RDCS Referring MD:Miguelina Perez RN LONG TERM CARE plate straightener:Miguel Mera MD Reading MD:Robinson Valerio MD Primary Indications:syncope Risk Factors Yes/No Hypertension Yes Diabetes No Hypercholesterolemia Yes Smoking Current No Impressions: The bilateral carotid arteries are normal throughout. Findings Carotid Duplex: [place] scale imaging combined with Doppler flow analysis suggests normal findings bilaterally. Right: The right proximal common carotid artery has a PSV of 76 cm/s and a EDV of 16 cm/s. The right mid common carotid artery has a PSV of 80 cm/s and a EDV of 20 cm/s. The right distal common carotid artery has a PSV of 64 cm/s and a EDV of 21 cm/s. The right bifurcation has a PSV of 47 cm/s and a EDV of 17 cm/s. The right proximal internal carotid artery has a PSV of 56 cm/s and a EDV of 19 cm/s. The right mid internal carotid artery has a PSV of 101 cm/s and a EDV of 39 cm/s. The right distal internal carotid artery has a PSV of 109 cm/s and a EDV of 37 cm/s. The right eca has a PSV of 99 cm/s and a EDV of 10 cm/s. The right vertebral artery has a PSV of 38 cm/s and a EDV of 9 cm/s. Left: The left proximal common carotid artery has a PSV of 95 cm/s and a EDV of 15 cm/s. The left mid common carotid artery has a PSV of 59 cm/s and a EDV of 44 cm/s. The left distal common carotid artery has a PSV of 49 cm/s and a EDV of 15 cm/s. The left bifurcation has a PSV of 49 cm/s and a EDV of 16 cm/s. The left proximal internal carotid artery has a PSV of 57 cm/s and a EDV of 20 cm/s. The left mid internal carotid artery has a PSV of 100 cm/s and a EDV of 35 cm/s. The left distal internal carotid artery has a PSV of 101 cm/s and a EDV of 31 cm/s. The left eca has a PSV of 89 cm/s and a EDV of 13 cm/s. The left vertebral artery has a PSV of 63 cm/s and a EDV of 12 cm/s. Carotid Results Right PSV EDV Assessment Proximal CCA 76 16 Mid CCA 80 20 Distal CCA 64 21 Bifurcation 47 17 Proximal ICA 56 19 Mid ICA 101 39 Distal ICA 109 37 ECA 99 10 Vertebral Artery 38 9 Left PSV EDV Assessment Proximal CCA 95 15 Mid CCA 59 44 Distal CCA 49 15 Bifurcation 49 16 Proximal ICA 57 20 Mid ICA 100 35 Distal ICA 101 31 ECA 89 13 Vertebral Artery 63 12 Ratio's Right ICA/CCA Ratio: 1.36 Left ICA/CCA Ratio: 1.71 Updated by Robinson Valerio MD on 04/12/2017 7:36:26 AM electronically signed on 04/12/2017 7:39:51 AM with status of Final
[2017-04-12] MEDS ORDERED: *HR* Heparin 10,000 UNIT/10 ML VIAL ONE (09:17)
[2017-04-12] MEDS ORDERED: Nitroglycerin 1,000 MCG/10 ML VIAL IV ONE (09:18)
[2017-04-12] MEDS ORDERED: 0.9 % Sodium Chloride 1,000 ML ONE ×2 (09:18→10:56)
[2017-04-12] MEDS ORDERED: Heparin 1,000 UNITS/500 mL NS 500 ML ONE (09:18)
[2017-04-12] MEDS ORDERED: *HR* Midazolam HCl 2 MG/2 ML VIAL ONE (10:48)
--- NOTE | 2017-04-12 10:55 | Internal Med Progress Note ---
Date of Encounter: 04/12/17 Time of Encounter: 09:15 - Assessment and plan (1) Chest pain Current Visit: Yes Status: Acute Assessment and plan: Patient currently denies chest pain. CTA negative. Echocardiogram unremarkable with ejection fraction of 60% and mild diastolic dysfunction. Patient euvolemic on examination. Carotid duplex negative. Stress test abnormal-cardiology brought on board. Plan is for left heart catheter later today. DOLLY resolved. EXAMINATION: CTA OF THE CHEST 04/08/2017 9:[address]/CT angio chest IMPRESSION: 1. No CT evidence of a pulmonary embolism. 2. No acute abnormality of the thoracic aorta. 3. Scattered atelectasis, without acute airspace consolidation. 4. Multiple scattered nonspecific subcentimeter pulmonary nodules throughout both lungs, the largest measuring approximately 5 mm within the left lower lobe. While these likely reflect benign granulomata, further follow-up of these nodules is as advised below. RECOMMENDATIONS: Fleischner Society guidelines for follow-up and management of incidentally detected pulmonary nodules: Multiple Solid Nodules: Nodule size less than 6 mm In a low-risk patient, no routine follow-up. In a high-risk patient, optional CT at 12 months. - Low risk patients include individuals with minimal or absent history of smoking and other known risk factors. - High risk patients include individuals with a history or smoking or known risk factors. Radiology 2017 http://pubs.rsna.org/doi/full/10.1148/[email or web address] D/ / 04/08/2017 21:43:46 Miguel Hall MD / [facility] Inrpreting Provider: Miguel Hall MD Carotid Duplex Procedure Date: 04/10/2017 Impressions: The bilateral carotid arteries are normal throughout. Echocardiogram Date of Study: 04/09/2017 Impressions: LVEF 60%. Normal LV chamber size, wall thickness and function. Mild left ventricular diastolic dysfunction. Normal right ventricular structure and function. No evidence of pulmonary hypertension. No significant valvular dysfunction. Regadenoson Nuclear Stress Date of Study: 04/10/2017 Impression: Pharmacologic stress ECG is non-diagnostic for ischemia due to submaximal HR. Gated EF = 73%. Small sized, moderate intensity, reversible apical lateral defect suggestive of ischemia. 3B nursing unit notified of results. Qualifiers: Chest pain type: intercostal pain Qualified Code(s): R07.82 - Intercostal pain (2) Exertional dyspnea Current Visit: Yes Status: Acute Assessment and plan: Patient stating he was mildly short of breath overnight but denies shortness of breath above his normal at this time. CTA negative. Echocardiogram unremarkable with ejection fraction of 60% and mild diastolic dysfunction. Stress test abnormal-cardiology brought on board. Plan is for left heart catheter today. Carotid duplex negative. Patient euvolemic on examination. (3) Abnormal nuclear stress test Current Visit: Yes Status: Acute (4) DOLLY (acute kidney injury) Current Visit: Yes Status: Resolved (5) CAD (coronary artery disease) Current Visit: Yes Status: Chronic Qualifiers: Coronary Disease-Associated Artery/Lesion type: [place] artery [place] vs. transplanted heart: [place] heart Associated angina: angina presence unspecified Qualified Code(s): I25.10 - Atherosclerotic heart disease of [place] coronary artery without angina pectoris (6) Trigeminal neuralgia of left side of face Current Visit: Yes Status: Chronic Assessment and plan: Per patient history. He takes Lamictal. Continue home medications. (7) DVT prophylaxis Current Visit: Yes Status: Acute Assessment and plan: Heparin subcutaneous, pt is ambulatory. - Subjective Interval history: Patient seen and examined. On examination, patient sitting upright in bed watching television. Patient is stating that he had some mild shortness of breath overnight but denies any chest pain or shortness of breath at this time. He denies questions or concerns regarding his upcoming procedure. - Constitutional Vitals: Temp Pulse Resp BP Pulse Ox 97.7 F 74 16 123/73 98 04/12/17 07:16 04/12/17 07:16 04/12/17 07:16 04/12/17 07:16 04/12/17 07:16 General appearance: Present: cooperative, A&O X 3, pleasant, no acute distress, answers questions appropriately - Head Head exam: Present: atraumatic, normocephalic - Eye Eye exam: Present: PERRL, conjuntiva pink, sclera anicteric Pupils: Present: PERRL - Neck Neck exam general surgery: Present: supple, trachea midline. Absent: lymphadenopathy - Respiratory Respiratory exam: Present: CTAB. Absent: accessory muscle use, rales, respiratory distress, rhonchi, wheezes - Cardiovascular Cardiovascular exam: Present: RRR, +S1, +S2. Absent: diastolic murmur, gallop, rubs, systolic murmur - GI/Abdominal GI/Abdominal exam: Present: normal bowel sounds, soft, no peritoneal signs. Absent: distended, tenderness - Extremities Exam Extremities exam: Present: warm, radial pulses palpable and symmetrical. Absent : calf tenderness, cyanotic, pedal edema - Neurological Exam Neurological exam: Present: alert, CN II-XII intact, oriented X3, no focal deficits, strengths equal and symetr throughout. Absent: pronater drift, facial droop, speech deficit - Skin Skin exam: Present: dry, intact, pallor, warm Internal Medicine: Result - Labs CBC & Chem 7: 04/11/17 04:07 04/12/17 05:58 Labs: BMP 04/12/17 05:58 Sodium 140 Potassium 4.1 Chloride 102 Carbon Dioxide 30 H BUN 19 Creatinine 1.12 Glucose 95 Calcium 9.5 - ABG Interpretation ABG results: PT/INR, D-dimer PT 12.2 Seconds (9.4-12.1) H 04/09/17 01:10 Consult Discharge Plan - Plan Referrals: Miguel Mera MD [Primary Care Provider] -
--- NOTE | 2017-04-12 11:07 | Pre-Sedation Evaluation ---
Pre-sedation evaluation - Pre-sedation checklist Date of procedure: 04/12/17 Recent Vitals: Last Vital Signs Temp 97.7 F 04/12/17 07:16 Pulse 74 04/12/17 07:16 Resp 16 04/12/17 07:16 BP 123/73 04/12/17 07:16 Pulse Ox 98 04/12/17 07:16 H&P (including ROS) documented in medical record: Yes Previous reaction to sedatives/anesthetics: No Dietary Status: NPO after Midnight Airway Assessment: Patient can open mouth completely, TMJ function normal Dentition: dentures removed Possible difficult airway: No ASA Classification *see protocol: CLASS III-Severe systemic disease Plan of Care: Pt appropriate candidate for procedure/moderate/conscious sedation , Risks/benefits of procedure/sedation discussed w/ patient/family, If not NPO; Risk of intake outweiged by necessity to perform procedure
--- NOTE | 2017-04-12 11:38 | Invasive Diagnostic Lab Proc ---
Name: Robinson Armenta Date of Study: 04/12/2017 Date: 1945 Ht: 68.9in Medical Record#: [id number] Age: 71 Wt: 180.78lb Gender: Male BSA: 1.98 Order #: [id number] BMI: 26.78 Physicians Procedure Physician: Claude Walker DO Referring MD: Referring MD: Staff Name Position Time In Jesusita Haddad RN Elevator Constructor 11:03 AM Ynes Cruz RT (R) Monitor 11:08 AM Magan Rosen RT (R) Scrub 11:05 AM Indications Indication Unstable Angina Procedures Performed Procedure L HRT ARTERY/VENTRICLE ANGIO Pre-Procedure Checklist Informed consent is complete signed and on chart. H&P is on chart. ID band is on and ID verified with patient. Patient NPO for procedure The procedure was described for the patient and questions were answered. Blood Pressure: 123/73 ECG is on chart. Plan of Care Patient will tolerate the procedure without complications. Adequate level of comfort will be maintained. Hemodynamics will remain stable Patient will recover from procedure without complications. Respiratory function will be maintained. Cardiac rhythm will remain stable. Patient temperature will be maintained. Patient and/or family have verbalized understanding of the procedure. Patient Education Chief Complaint/Reason for Test: Cardiac Cath Developmental Category: Geriatric (65+ years) Developmentally Appropriate for Age: Yes Learning Barriers: None Education Needs: Procedure Education Method: Verbal Information Taught: Cardiac Cath Educational Evaluation: Able to repeat information Intravenous Access Time IV Size Location DC'd Fluid/Drip Rate Units RN 18g 1 /" Patent On Arrival Rt AC 0.9NaCl Allergies CIPRO - TAPE ciprofloxacin Vital Signs Time BP (mmHg) HR (bpm) O2 Sat. RR (bpm) LOC 123 / 73 74 98 % 16 11:09 AM / % 4 = Oriented but drowsy 11:09 AM / % 4 = Oriented but drowsy 11:03 AM 158 / 82 90 97 % 1 Procedural Medications Time Medication Dose Units Method Given By 11:03 AM Versed 2 mg Intravenous Jesusita Haddad RN 11:15 AM Lidocaine 2% 10 ml Subcutaneous Claude Walker DO ASA Classification: CLASS II- Mild systemic disease (i.e. well-controlled diabetes, hypertension, asthma, cigarette smoking) Alec Score Preprocedure Postprocedure Activity 2- Moves 4 extremities sustained head lift Activity 2- Moves 4 extremities sustained head lift Circulation 2- SBP +/= 20 points of pre-anesthetic level Circulation 2- SBP +/= 20 points of pre-anesthetic level Consciousness 2- Awake and alert oriented x 3 Consciousness 2- Awake and alert oriented x 3 O2 Saturation 2- Able to maintain O2 satruation of 92% on room air O2 Saturation 2- Able to maintain O2 satruation of 92% on room air Respiratory 2- Able to deep breathe and cough well Respiratory 2- Able to deep breathe and cough well Total Score 10 Total Score 10 Contrast Agent: Isovue Diagnostic Contrast: 50 ml Total Contrast: 50 ml Fluoro Dose: 206 mGy Procedure Log Time Note Enter By 10:55 AM CathStat 11:02 AM NIBP STAT measurement started. 11:03 AM Time: 11:03 Versed 2 mg Intravenous Given by Jesusita Haddad RN scoates 11:03 AM Pt arrived to cath lab technologist 2 at 11:03 scoates 11:03 AM Patient charges- Angio tray pack, Navilyst 3mm J, Pulse Oximetry and ACIST tubing and transducer scoates 11:03 AM Physican paged/called 11:003 scoates 11:03 AM Physician arrived 11:05 scoates 11:03 AM ASA Class CLASS II- Mild systemic disease (i.e. well-controlled diabetes, hypertension, asthma, cigarette smoking) scoates 11:03 AM Meet and greet completed scoates 11:03 AM Sign in performed according to hospital policy. scoates 11:03 AM HR=90 bpm, PRFI=069/82 mmhg, SpO2=97.0 %, Resp=1 B/min, Comment=NSR 11:03 AM Procedure start 11:03 scoates 11:03 AM Jesusita Haddad RN Position: Elevator Constructor Time in: 11:03 scoates 11:04 AM Recorded ECG: HR=88 Condition=Condition 1 11:05 AM Ynes Cruz RT (R) Position: Monitor Time in: 11:05 scoates 11:05 AM Magan Rosen RT (R) Position: Scrub Time in: 11:05 scoates 11:09 AM Case Delayed No [email or web address] 11:09 AM Hair removed from procedure site in holding area using clippers. Bilateral groin prepped with Chloraprep by Duenweg, Jesusita RN, safety strap applied then patient was draped. Skin intact. [email or web address] 11:09 AM Time: 11:09 Patient comfortable and pain free: Yes [email or web address] 11:09 AM Time: 11:09LOC: 4 = Oriented but drowsy [email or web address] 11:10 AM Pressure channel 2 zeroed. 11:15 AM Time out performed according to hospital policy [email or web address] 11:16 AM Time: 11:15 10 ml Lidocaine 2% to right groin Subcutaneous Given by Claude Walker DO [email or web address] 11:16 AM Pressure channel 2 zero failed. 11:16 AM Pressure channel 2 zeroed. 11:17 AM Micro-Introducer Kit utilized for sheath placement [email or web address] 11:17 AM Sheath exchanged for a 6 Fr 11 cm Cordis Ramona sheath [id number] [email or web address] 11:17 AM 0.035 145cm Navilyst 3mmJ wire [id number] [email or web address] 11:17 AM 6Fr FR 4 catheter inserted over the wire [facility] [email or web address] 11:19 AM Recorded Pressure: LV, HR=72, Condition=Condition 1 (Left Ventricle) LV 155/4/17 11:19 AM Catheter selectively placed in left ventricle [email or web address] 11:19 AM Recorded Pressure: LV, Ao, HR=83, Condition=Condition 1 (Left Ventricle) LV 152/5/15, (Aorta) Ao 151/74/108 11:20 AM Bolus angiogram of left Ventricle complete: ml/sec for a total of 10 mls [email or web address] 11:20 AM RCA angiography performed in multiple views. [email or web address] 11:20 AM Catheter removed [email or web address] 11:21 AM 6Fr FL 4 catheter inserted over the wire [facility] [email or web address] 11:22 AM Recorded Pressure: Ao, HR=88, Condition=Condition 1 (Aorta) Ao 143/66/103 11:22 AM Recorded Pressure: Ao, HR=86, Condition=Condition 1 (Aorta) Ao 143/69/102 11:23 AM LCA angiography performed in multiple views. [email or web address] 11:23 AM Bolus angiogram of right Femoral complete: ml/sec for a total of 5 mls [email or web address] 11:23 AM Catheter removed [email or web address] 11:23 AM Coronary Dominance: Left [email or web address] 11:24 AM Time: 11:09LOC: 4 = Oriented but drowsy [email or web address] 11:24 AM Time: 11:09 Patient comfortable and pain free: Yes [email or web address] 11:27 AM Procedure completed at 11:27 [email or web address] 11:27 AM Sign out completed: Radiation Dose 205.67 mGy Fluoro Time: 1.5 Isovue 370 - 200ml contrast 50 ml given by Claude Walker DO. Complications: NoneCardiac Rehab Consult needed: NoConfirmed administered medications: Yes [email or web address] 11:27 AM Isovue 370 - 200ml,1 Bottle(s) used. [email or web address] 11:27 AM Arterial sheath pulled, Angio-seal Evolution closure device used and was Successful S/N. [email or web address] 11:27 AM Post ECG NSR [email or web address] 11:28 AM Post Blood Pressure 158/82 [email or web address] 11:28 AM 11:28 Post Pulses Bilateral DP & PT 1+ [email or web address] 11:28 AM Information taught Cardiac Cath and Angioseal [email or web address] 11:28 AM Education needs Procedure, Plan of Care, and Disease Process [email or web address] 11:28 AM Learning barriers :None [email or web address] 11:28 AM Education Methods Verbal [email or web address] 11:28 AM Education evaluation Able to repeat information [email or web address] 11:28 AM Site status No bleeding/hematoma - Rt Groin as reported by Magan Rosen RT (R) at 11:28 [email or web address] 11:28 AM Opsite applied [email or web address] 11:28 AM Delay to floor No [email or web address] 11:28 AM Family placed in not available. [email or web address] 11:28 AM Complications: None [email or web address] 11:28 AM Fluoro Time: 1.5 [email or web address] 11:29 AM Isovue 370 - 200ml contrast 50 ml given by Claude Walker DO. [email or web address] 11:29 AM Radiation Dose 205.67 mGy [email or web address] 11:31 AM Report given to Angela LOPEZ Pt taken to Room #36. 11:31 [email or web address] 11:32 AM Patient out of room: 11:32 [email or web address] Complications Complication None None Hemodynamics Pressures Site Systolic/A Wave Diastolic/V Wave Mean LV 155 4 17 LV 152 5 15 AO 151 74 108 AO 143 66 103 AO 143 69 102 Post Procedure Information Blood Pressure: 158/82 mmHg Rhythm: NSR Post procedural instructions were given Closure Device Time Device Success/Fail 04/12/2017 11:26:00 AM Angioseal Successful Site Checks Time Location Status Staff Sheath In? Note 11:27 AM Rt Groin No bleeding/ No Hematoma Magan Rosen RT (R) 11:28 AM Rt Groin No bleeding/hematoma Magan Rosen RT (R) Pulses Time Site Pre-Procedure Post-Procedure Note Bilateral radial 2+ Bilateral DP & PT 1+ 11:28:00 AM Bilateral DP & PT 1+ Updated by Ynes Cruz, RT(R) on 04/12/2017 11:33:44 AM electronically signed on 04/12/2017 11:34:29 AM with status of Final
[2017-04-12] MEDS ORDERED: 0.9 % Sodium Chloride 1,000 ML IVC SCH (11:45)
--- NOTE | 2017-04-12 11:45 | Event Note ---
Date of Encounter: 04/12/17 Time of Encounter: 11:40 - Cardiology Event Note Per discussion with Dr. Walker, no significant lesions ("normal coronaries). Cardiology signing off, re-consult PRN, f/u with PCP, Evaluate noncardiac causes of symptoms.
[2017-04-12] MEDS: *HR* HYDROcodone/Acet 10/325 mg TABLET PO PRN (14:14)
--- NOTE | 2017-04-12 15:21 | Discharge Summary ---
Date of Encounter: 04/12/17 Time of Encounter: 09:30 (and 1430) - Discharge Diagnosis (1) Chest pain Priority: Primary Status: Acute Comments: Patient denied chest pain. CTA negative. Echocardiogram unremarkable with ejection fraction of 60% and mild diastolic dysfunction. Patient euvolemic on examination. Carotid duplex negative. Stress test abnormal-cardiology brought on board. [facility] with normal coronary arteries. Follow-up outpatient Qualifiers: Chest pain type: intercostal pain Qualified Code(s): R07.82 - Intercostal pain (2) Exertional dyspnea Priority: Primary Status: Resolved Comments: Patient stating he was mildly short of breath overnight but denied shortness of breath above his normal on day of discharge. CTA negative. Echocardiogram unremarkable with ejection fraction of 60% and mild diastolic dysfunction. Stress test abnormal-cardiology brought on board. Left heart catheter normal. Carotid duplex negative. Patient euvolemic on examination. (3) Abnormal nuclear stress test Priority: Primary Status: Acute (4) DOLLY (acute kidney injury) Priority: Primary Status: Resolved (5) CAD (coronary artery disease) Priority: Secondary Status: Chronic Qualifiers: Coronary Disease-Associated Artery/Lesion type: [place] artery [place] vs. transplanted heart: [place] heart Associated angina: angina presence unspecified Qualified Code(s): I25.10 - Atherosclerotic heart disease of [place] coronary artery without angina pectoris (6) Trigeminal neuralgia of left side of face Priority: Secondary Status: Chronic Comments: Per patient history. He takes Lamictal. Continue home medications. (7) DVT prophylaxis Priority: Primary Status: Acute Comments: Subcutaneous heparin while admitted - Discharge Medications Prescriptions: Aspirin 81 mg PO DAILY #30 Home Medications: Cetirizine HCl [All Day Allergy] 10 mg PO DAILY 04/08/17 [History] Finasteride [Proscar] 5 mg PO DAILY 04/08/17 [History] HYDROcodone/Acet 10/325 mg [Idanha 10-325 mg] 1 tab PO Q6HR PRN 04/08/17 [History ] Hydrochlorothiazide [Microzide] 12.5 mg PO DAILY 04/08/17 [History] Levofloxacin [Levaquin] 500 mg PO DAILY 04/08/17 [History] Levothyroxine [Synthroid] 25 mcg PO DAILY 04/08/17 [History] Omeprazole [PriLOSEC] 40 mg PO DAILY 04/08/17 [History] Pregabalin [Lyrica] 150 mg PO TID 04/08/17 [History] amLODIPine [Norvasc] 5 mg PO DAILY 04/08/17 [History] lamoTRIgine [Lamictal] 100 mg PO BID 04/08/17 [History] Atorvastatin Calcium [Lipitor] 20 mg PO HS 04/09/17 [History] Aspirin 81 mg PO DAILY #30 04/12/17 [Rx] Allergies/Adverse Reactions: 3 Allergy/AdvReac Type Severity Reaction Status Date / Time ciprofloxacin Allergy Hypotension Verified 08/27/16 14:53 Procedures/tests Complete & Pending: Procedures Performed prior 72 hours Category Date Time Status CL Cardiac Catheterization [CL] Routine Aircraft Manager 04/12/17 11:35 Ordered NM mau perf SPECT multi [NM] Routine Exams 04/09/17 16:30 Taken EV carotid duplex imaging BI Routine Y 04/10/17 10:01 Completed SP pharm nuclear stress Routine Y 04/10/17 09:00 Completed Date of admission: 04/08/17 23:55 Primary care physician: Miguel Mera MD Consults: 04/10/17 12:07 Consult to Cardiology [CONS] Routine Comment: Consulting Provider: Cardiology [place] Reason for Consult: abnormal stress Time Notified: 12:08 Call Completed: Yes Discharging clinician: Lyla Gaxiola Anticipated date of discharge: 04/12/17 - Patient Status Disposition: Home, Self-Care Condition: Good Functional capacity at discharge: independent ambulation Overall status at discharge: patient is back to baseline - Discharge Instructions Follow Up With: Miguel Mera MD [Primary Care Provider] - Additional Instructions: Follow-up with primary care provider within one to 2 weeks - Diet and Activity Activity: increase activity as tolerated Diet: low fat, low cholesterol, low salt diet Hospital course: Mr. Armenta is a 71 year old male with past medical history of CAD status post ballooning angioplasty in the 90s, GERD, hyperlipidemia, hypertension, thyroid disease, appendectomy, cholecystectomy, partial colectomy. Patient presented to the emergency department chief complaint of chest pain and exertional dyspnea. Workup at [place] in the emergency department was unremarkable including a negative CTA which ruled out a PE. Patient complained of pleuritic chest pain 2-3 days prior to presentation. He also endorsed worsening dyspnea with exertion to the point where he could barely walk without significant dyspnea. He states the worsening dyspnea on exertion symptoms started approximately 1 week prior to presentation and progressively worsened. He denied fever, chills, cough, body aches. Denied any ill contacts. Patient was admitted to the hospitalist service for further evaluation and management. Patient denied chest pain or shortness of breath above his normal while admitted. Every kidney injury resolved while admitted. Echocardiogram unremarkable with ejection fraction of 60% and mild diastolic dysfunction. Patient euvolemic on examination. Carotid duplex negative. Stress test abnormal, so cardiology was brought on board. After discussing with the patient , cardiology proceeded with a left heart catheter. Per report, left heart catheter revealed normal coronary arteries without intervention indicated. For further risk factor stratification, patient was started on aspirin per cardiology. He is on a statin and beta shree. Patient is ambulatory about his room without limitation or significant dyspnea. He was on room air while admitted. He was discharged home in stable condition with close outpatient follow-up recommended. EXAMINATION: CTA OF THE CHEST 04/08/2017 9:[address]/CT angio chest IMPRESSION: 1. No CT evidence of a pulmonary embolism. 2. No acute abnormality of the thoracic aorta. 3. Scattered atelectasis, without acute airspace consolidation. 4. Multiple scattered nonspecific subcentimeter pulmonary nodules throughout both lungs, the largest measuring approximately 5 mm within the left lower lobe. While these likely reflect benign granulomata, further follow-up of these nodules is as advised below. RECOMMENDATIONS: Fleischner Society guidelines for follow-up and management of incidentally detected pulmonary nodules: Multiple Solid Nodules: Nodule size less than 6 mm In a low-risk patient, no routine follow-up. In a high-risk patient, optional CT at 12 months. - Low risk patients include individuals with minimal or absent history of smoking and other known risk factors. - High risk patients include individuals with a history or smoking or known risk factors. Radiology 2017 http://pubs.rsna.org/doi/full/10.1148/radiol.[email or web address] D/ : / 04/08/2017 21:43:46 Miguel Hall MD / [place] Inrpreting Provider: Miguel Hall MD Carotid Duplex Procedure Date: 04/10/2017 Impressions: The bilateral carotid arteries are normal throughout. Echocardiogram Date of Study: 04/09/2017 Impressions: LVEF 60%. Normal LV chamber size, wall thickness and function. Mild left ventricular diastolic dysfunction. Normal right ventricular structure and function. No evidence of pulmonary hypertension. No significant valvular dysfunction. Regadenoson Nuclear Stress Date of Study: 04/10/2017 Impression: Pharmacologic stress ECG is non-diagnostic for ischemia due to submaximal HR. Gated EF = 73%. Small sized, moderate intensity, reversible apical lateral defect suggestive of ischemia. 3B nursing unit notified of results. - Time Spent with Patient Total time spent providing and/or coordinating discharge services: - Constitutional Vitals: Temp Pulse Resp BP Pulse Ox 97.8 F 79 16 113/68 97 04/12/17 14:16 04/12/17 14:16 04/12/17 14:16 04/12/17 14:16 04/12/17 13:30 General appearance: Present: cooperative, A&O X 3, pleasant, no acute distress, answers questions appropriately - Head Head exam: Present: atraumatic, normocephalic - Eye Eye exam: Present: PERRL, conjuntiva pink, sclera anicteric Pupils: Present: PERRL - Neck Neck exam general surgery: Present: supple, trachea midline. Absent: lymphadenopathy - Respiratory Respiratory exam: Present: CTAB. Absent: accessory muscle use, rales, respiratory distress, rhonchi, wheezes - Cardiovascular Cardiovascular exam: Present: RRR, +S1, +S2. Absent: diastolic murmur, gallop, rubs, systolic murmur - GI/Abdominal GI/Abdominal exam: Present: normal bowel sounds, soft, no peritoneal signs. Absent: distended, tenderness - Extremities Exam Extremities exam: Present: warm, radial pulses palpable and symmetrical. Absent : calf tenderness, cyanotic, pedal edema - Neurological Exam Neurological exam: Present: alert, CN II-XII intact, normal gait, oriented X3, no focal deficits, strengths equal and symetr throughout. Absent: pronater drift, facial droop, speech deficit - Skin Skin exam: Present: dry, intact, normal color, warm
[2017-04-12 15:39] VITALS: BP 116/68
--- NOTE | 2017-04-13 11:24 | Electrocardiograph Report ---
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
== END 2017-04-12 16:35 | disposition home or self-care (01) ==
LOC: 3BNU → SUATTDRO 23:55 → 3BNU 04-09 00:11
PROVIDERS: ADMIT Pediatrics; ATTEND Nurse Practitioner Family